=== PATIENT | male | born 1975 | race Native Hawaiian/Other Pacific Islander ===

== ENCOUNTER 2017-05-17 18:11 | Emergency (ER) | payer SELFPAY ==
[2017-05-17] MEDS ORDERED: ZOFRAN IV ONE (22:27)
[2017-05-17] MEDS ORDERED: CLEOCIN 900 MG/50 mL 900 MG/50 ML BAG IV ONE (22:27)
[2017-05-17] MEDS ORDERED: MORPHINE IV ONE (22:27)
[2017-05-17] MEDS ORDERED: NACL 0.9% 1000 ML 1,000 ML IV ONE (22:27)
[2017-05-17] MEDS ORDERED: MORPHINE ONE (22:36)
[2017-05-17] MEDS ORDERED: DECADRON IV ONE (22:38)
[2017-05-17 22:58] LABS: Basophils # (Auto) 0.1 K/mm3 (0.0-0.1); Basophils % (Auto) 0.4 % (0.0-1.8); Eosinophils % (Auto) 0.1 % (0.0-4.3); Hematocrit 38.8 % (35.5-45.6); Hemoglobin 12.8 gm/dl (11.8-15.2); Lymphocytes % (Auto) 6.6 % (13.4-35.0); Mean Corpuscular HGB Conc 33 % (32-34); Mean Corpuscular Volume 78 fl (84-94); Monocytes # (Auto) 1.5 K/mm3 (0.0-0.8); Monocytes % (Auto) 9.7 % (0.0-7.3); Platelet Count 365 K/mm3 (140-440); Red Blood Count 4.94 M/mm3 (3.65-5.03); Red Cell Distribution Width 14.4 % (13.2-15.2)
[2017-05-17 23:00] LABS: Mean Corpuscular Hemoglobin 26 pg (28-32)
[2017-05-17 23:14] LABS: BUN/Creatinine Ratio 16; Blood Urea Nitrogen 11 mg/dL (9-20); Hemolysis Index 11
--- NOTE | 2017-05-17 23:52 | Emergency Department Report ---
ED ENT HPI - General Chief complaint: Sore Throat Stated complaint: TONSILITIS Time Seen by Provider: 05/17/17 22:23 Source: patient Mode of arrival: Ambulatory Limitations: No Limitations - History of Present Illness Initial comments: This is a 42-year-old male nontoxic, well nourished in appearance, no acute signs of distress presents to the ED with c/o of sore throat x2 days. Patient describes sore throat as "sensation as swallowing razer blades". Patient also stated has drooling and unable to eat or drink anything. Patient stated has hoarseness. Patient was seen in a clinic yesterday and been prescribed 600 mg of Motrin and IM Rocephin shot but no antibiotic to be sent home with. Patient denies any facial swelling, fever, chills, nausea, vomiting, headache or stiff neck. Patient denies any chest pain or difficulty breathing or shortness of breath. Patient denies any allergies or significant past medical history. ct scan tech friend is currently present at the bedside. MD complaint: sore throat, difficulty swallowing -: days(s) (2) Location: throat Severity: severe Severity scale (0 -10): 10 Consistency: constant Improves with: none Worsens with: swallowing Associated Symptoms: pain with swallowing, sore throat. denies: fever, cough, gum swelling, toothache, tinnitus, hearing loss, discharge from ear, rhinorrhea - Related Data Allergies Allergy/AdvReac Type Severity Reaction Status Date / Time No Known Allergies Allergy Verified 05/17/17 22:44 ED Dental HPI - General Chief complaint: Sore Throat Stated complaint: TONSILITIS Time Seen by Provider: 05/17/17 22:23 Source: patient Mode of arrival: Ambulatory Limitations: No Limitations - Related Data Allergies Allergy/AdvReac Type Severity Reaction Status Date / Time No Known Allergies Allergy Verified 05/17/17 22:44 ED Review of Systems ROS: Stated complaint: TONSILITIS Other details as noted in HPI Constitutional: denies: chills, fever Eyes: denies: eye pain, eye discharge, vision change ENT: throat pain. denies: ear pain Respiratory: denies: cough, shortness of breath, wheezing Cardiovascular: denies: chest pain, palpitations Endocrine: no symptoms reported Gastrointestinal: denies: abdominal pain, nausea, diarrhea Genitourinary: denies: urgency, dysuria Musculoskeletal: denies: back pain, joint swelling, arthralgia Skin: denies: rash, lesions Neurological: denies: headache, weakness, paresthesias Psychiatric: denies: anxiety, depression Hematological/Lymphatic: denies: easy bleeding, easy bruising ED Past Medical Hx - Past Medical History Previous Medical History?: Yes Hx Hypertension: Yes Additional medical history: Pharyngitis - Surgical History Past Surgical History?: No - Social History Smoking Status: Never Smoker Substance Use Type: Alcohol, Prescribed ED Physical Exam - General Limitations: No Limitations General appearance: alert, in no apparent distress - Head Head exam: Present: atraumatic, normocephalic - Eye Eye exam: Present: normal appearance Pupils: Present: normal accommodation - ENT ENT exam: Present: mucous membranes moist, TM's normal bilaterally, normal external ear exam - Expanded ENT Exam Expanded Ear exam: Present: normal external inspection Mouth exam: Present: normal external inspection, tongue normal. Absent: drooling, trismus, muffled voice, tongue elevation, laceration Teeth exam: Present: normal inspection Throat exam: Positive: tonsillar erythema, tonsillomegaly (4+, left), tonsillar exudate, L peritonsillar mass, other (Unable to visualize uvula. Airway intake.) . Negative: R peritonsillar mass - Neck Neck exam: Present: normal inspection, full ROM, lymphadenopathy (Bilateral tonsillar). Absent: tenderness, meningismus, thyromegaly - Respiratory Respiratory exam: Present: normal lung sounds bilaterally. Absent: respiratory distress, wheezes, rales, rhonchi, stridor, chest wall tenderness, accessory muscle use, decreased breath sounds, prolonged expiratory - Cardiovascular Cardiovascular Exam: Present: regular rate, normal rhythm, tachycardia, normal heart sounds. Absent: irregular rhythm, systolic murmur, diastolic murmur, rubs , gallop - GI/Abdominal GI/Abdominal exam: Present: soft, normal bowel sounds. Absent: distended, tenderness, guarding, rebound, rigid, diminished bowel sounds - Rectal Rectal exam: Present: deferred - Extremities Exam Extremities exam: Present: normal inspection, full ROM, normal capillary refill. Absent: tenderness - Back Exam Back exam: Present: normal inspection, full ROM - Neurological Exam Neurological exam: Present: alert, oriented X3, CN II-XII intact, normal gait - Psychiatric Psychiatric exam: Present: normal affect, normal mood - Skin Skin exam: Present: warm, dry, intact, normal color. Absent: rash ED Course Vital Signs 05/17/1718 03 18:18 22:05 01:42 Temperature 99.4 F 99.0 F Pulse Rate 109 H 84 80 Respiratory 20 17 16 Rate Blood Pressure 143/93 Blood Pressure 111/73 [Right] O2 Sat by Pulse 98 99 100 Oximetry - Reevaluation(s) Reevaluation #1: 05/17/17 23:57 Patient is speaking in full sentences with hoarseness with no signs of distress noted. Reevaluation #2: 05/18/17 02:42 Patient is stable with no signs of distress. Awaiting transport. - Consultations Consultation #1: 05/17/17 23:57 Patient has been consulted with Dr. Bravo about patient history, physical exam , and labs and CT imaging and agrees to the ED plan of care and transport. Consultation #2: 05/18/17 00:48 [facility] transport [facility] was consulted about ENT consult and stated she will page ENT for transport. Awaiting ENT [facility] to call back. Consultation #3: 05/18/17 01:26 Dr. Romeo ENT and Dr. Schaffer ED from [facility] was consulted about patient history, physical exam, and CT findings and accepts patient to their services. ED Medical Decision Making - Lab Data Result diagrams: 05/17/17 22:44 05/17/17 22:44 - Medical Decision Making This is a 42-year-old male that presents with tonsillar left abscess. Patient is stable and was examined by me. CT with contrast obtained and dictated by radiologist with a large left tonsillar phalange measuring 5.1 cm 4 cm 6.7 cm with mass affect on the airway. Dr. Bravo has been consulted and agrees to the plan of care in the ED as well as transport to the ENT services. [facility] has been consulted but did not call back with ENT. ENT was consulted and Dr. Romeo ENT and Dr. Schaffer ED from [facility] accepts patient to their services. Labs obtained with a elevated white count. Patient's airway is intact. Patient did receive IV clindamycin 610 of IV Decadron with 1 L of normal saline. Patient was put on a satin finisher. At time of transport, the patient does not seem toxic or ill in appearance. No acute signs of distress noted. Patient agrees to treatment plan of care. No further questions noted by the patient. Critical care attestation.: If time is entered above; I have spent that time in minutes in the direct care of this critically ill patient, excluding procedure time. ED Disposition Clinical Impression: Tonsillar abscess Disposition: [id number] ANOTHER TYPE HLTHCARE Is pt being admited?: No Condition: Stable Referrals: PRIMARY CARE, [Primary Care Provider] - 3-5 Days
--- NOTE | 2017-05-18 00:38 | Cat Scan Report ---
FINAL REPORT EXAM: CT NECK W CON HISTORY: left tonsillar swelling r/o tonsillar abscess TECHNIQUE: Routine axial imaging was obtained the soft tissues of the neck following the intravenous injection of 100 cc of Omnipaque 300. MPR parasagittal and coronal reconstructions were reviewed. FINDINGS: There is phlegmonous changes at the level of the left tonsil with diminished attenuation of the tissues and mass effect on the way. The area measures 5.1 cm x 4.0 cm x 6.7 cm. A peripherally enhancing abscess though is not seen. The retropharyngeal space otherwise appears normal. The parotid and submandibular glands appear normal. There are small benign-appearing lymph nodes in the submandibular, internal jugular and spinal accessory chains. The vascular structures otherwise enhance normally. The thyroid gland appears normal. The lung apices are clear. The skeletal structures otherwise are well maintained. Along the skullbase the visualized sinuses and mastoid air cells are well pneumatized. IMPRESSION: Large left tonsillar phlegmon measuring 5.1 cm x 4 cm x 6.7 cm with mass effect on the airway. Benign-appearing rectal lymph nodes as described.
[2017-05-18] MEDS ORDERED: NACL 0.9% 1000 ML 1,000 ML IV ONE (00:43)
[2017-05-18 01:43] VITALS: BP 111/73
[2017-05-18] MEDS ORDERED: ZOFRAN IV ONE (03:00)
[2017-05-18] MEDS ORDERED: MORPHINE IV ONE (03:00)
[2017-05-18] MEDS ORDERED: ZOFRAN ONE (03:03)
[2017-05-18] MEDS ORDERED: MORPHINE ONE (03:03)
== END 2017-05-18 03:25 | disposition other institution (70) ==
LOC: ED 18:11
DX: J36 Peritonsillar abscess (principal); I10 Essential (primary) hypertension
CPT/HCPCS: 36415; 70491; 80048; 85025; 96361; 96365; 96375; 96376; 99285; J1100; J2270; J2405; J7030; Q9967